=== PATIENT | female | born 1995 | race Caucasian/White ===

== ENCOUNTER 2022-02-10 20:01 | Emergency (ER) | payer SELFPAY ==
[~2022-02-10] VITALS: Ht 152.4 cm; Wt 54.4 kg
--- NOTE | 2022-02-10 20:01 | NUR ---
PT BIB [facility], PREBOOK. TAKEN TO [facility]AIR C
[2022-02-10 20:03] VITALS: BP 137/79
[2022-02-10 20:11] VITALS: BP 137/79
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
--- NOTE | 2022-02-10 20:26 | NUR ---
Dr. Muhammad examining patient.
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
== END 2022-02-10 20:38 ==
LOC: MED 20:01
DX: M25.511 Pain in right shoulder (principal); V49.88XA Car occupant (driver) (passenger) injured in other specified transport accidents, initial encounter; Y93.89 Activity, other specified; Y92.89 Other specified places as the place of occurrence of the external cause; Y99.8 Other external cause status
CPT/HCPCS: 99283